=== PATIENT | male | born 1990 | race Caucasian/White ===

== ENCOUNTER 2018-05-05 08:54 | Emergency (ER) | payer BC ==
[2018-05-05] MEDS ORDERED: Ondansetron HCl/PF 4 MG/2 ML Vial ONE (09:29)
[2018-05-05 09:52] LABS: #Basophils 0.1 thou/uL (0.0-0.2); #Eosinphils 0.1 thou/uL (0.0-0.7); #Lymphocytes 1.5 thou/uL (1.20-3.40); #Monocytes 0.5 thou/uL (0.11-0.59); #Neutrophils 3.1 thou/uL (1.40-6.50); %Basophils 1.4 % (0.0-1.0); %Eosinophils 1.6 % (0.0-10.0); %Lymphocytes 28.1 % (21.0-51.0); %Monocytes 10.2 % (0.0-10.0); %Neutrophils 58.7 % (42.0-75.0); Hemoglobin 17.1 g/dL (14.0-18.0); Mean Corpuscular HGB CONC 35.5 g/dL (32.0-36.0); Mean Corpuscular Hemoglobin 33.8 pg (27.0-31.0); Mean Platelet Volume 7.4 fL (7.4-10.4); Platelet Count 237 thou/uL (130-400); RBC Distribution Width 12.3 % (11.5-14.5); Red Blood Cell (RBC) Count 5.06 mill/uL (4.70-6.10); White Blood Cell (WBC) Count 5.4 thou/uL (4.8-10.8)
[2018-05-05 10:16] LABS: ALT (SGPT) 17 U/L (8-55); AST (SGOT) 16 U/L (5-34); Albumin 4.9 g/dL (3.5-5.0); Alkaline Phosphatase 67 U/L (40-150); Anion Gap 13 mmol/L (10-20); BUN (Urea Nitrogen) 14 mg/dL (8.9-20.6); Bilirubin, Total 0.8 mg/dL (0.2-1.2); Calc. Creatinine Clearance 0 mL/min (70-130); Carbon Dioxide 26 mmol/L (22-29); Chloride 104 mmol/L (98-107); Estimated GFR-MDRD 68; Globulin 2.5 g/dL (2.4-3.5); Glucose 109 mg/dL (70-105); Lipase 27 U/L (8-78); Potassium 4.2 mmol/L (3.5-5.1); Protein, Total 7.4 g/dL (6.0-8.3); Sodium 139 mmol/L (136-145)
== END 2018-05-05 11:29 | disposition home or self-care (01) ==
LOC: ERS 08:54
DX: R11.2 Nausea with vomiting, unspecified (principal); F31.9 Bipolar disorder, unspecified; F41.9 Anxiety disorder, unspecified; Z87.891 Personal history of nicotine dependence
CPT/HCPCS: 80053; 83690; 85025; 96361; 96374; J2405

== ENCOUNTER 2018-05-07 20:31 | Emergency (ER) | payer BC, SELFPAY ==
[2018-05-07] MEDS ORDERED: Ketorolac Tromethamine 30 MG/ML VIAL ONE (20:49)
== END 2018-05-07 20:55 | disposition home or self-care (01) ==
LOC: ERS 20:31
DX: M62.830 Muscle spasm of back (principal); Z87.891 Personal history of nicotine dependence
CPT/HCPCS: 96372; J1885

== ENCOUNTER 2018-11-08 14:09 | Emergency (ER) | payer BC ==
--- NOTE | 2018-11-08 15:57 | CT ---
CT LUMBAR SPINE NONCONTRAST: DATE: 11/08/2018. HISTORY: A 28-year-old male with low back pain. FINDINGS: There are transitional levels at the thoracolumbar junction and lumbosacral junction. For the purpos es of this report, the level with tiny bilateral accessory ribs will be designated as L1. The transi tional level at the lumbosacral junction will be designated as L6. The left L6 transverse process is enlarged and is fused with the left S1 sacral ala. The L6-S1 disk space is slightly hypoplastic. At L5-6, there is minimal disk space narrowing, and a mild diffuse disk bulge, plus a small central a nd bilateral paracentral focal disk herniation, which abuts the right L6 nerve root, and mildly defor ms the left L6 nerve root, and pushes it against the left ligamentum flavum. There is mild central s miriam canal stenosis at L5-6 as a result of this. Mild to moderate bilateral neural foraminal stenos is at L5-6. No spondylolysis or spondylolisthesis. The rest of the disk spaces are maintained. No significant central spinal canal stenosis or neural foraminal stenosis at any other level. IMPRESSION: 1. Transitional levels at the thoracolumbar junction and lumbosacral junction. 2. 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 3. At L5-6, there is mild degenerative disk disease, with a small central and bilateral paracentral disk herniation which impinges on the left L6 nerve root and abuts the right L6 nerve root. 4. The rest of the lumbar spine is normal. POS: THOMAS
== END 2018-11-08 15:59 | disposition home or self-care (01) ==
LOC: ERS 14:09
DX: M51.36 Other intervertebral disc degeneration, lumbar region (principal); F41.9 Anxiety disorder, unspecified; F31.9 Bipolar disorder, unspecified
CPT/HCPCS: 72131